=== PATIENT | male | born 1955 | race Caucasian/White ===

== ENCOUNTER 2021-12-04 14:01 | Emergency (ER) | payer MEDICARE, OTHER ==
[~2021-12-04 14:01] MED LIST: ASPIRIN325 MG PO; AZULFIDINE500 M1 PO; CENTRUM COMPLE1 EACH PO; HUMIRA40 MG/0.1 SC; HUMULIN N100 UNIT/1 SC; K-DUR20 MEQ PO; L-LYSINE500 M1 PO; LOVAZA1 GM PO; MEDROL4 M1 PO; NAPROXEN500 MG PO; NEURONTIN400 MG PO; NEURONTIN800 MG PO; NORCO 10-325 T1 EACH PO; PREDNISONE5 MG PO; PRILOSEC40 MG PO; SINGULAIR10 MG PO; TUMERIC PO; VITAMIN D3 PO; VITAMIN E400 UNI4 PO; XELJANZ XR11 MG PO
[2021-12-04] MEDS ORDERED: BACITRACIN15 GM TOP (18:42)
[2021-12-04] MEDS ORDERED: CEPHALEXIN500 MG PO (18:42)
[2021-12-04] MEDS ORDERED: NORCO 5-325 TA1 EACH PO (18:42)
== END 2021-12-04 19:27 | disposition home or self-care (01) ==
LOC: FER 14:01
DX: S81.812A Laceration without foreign body, left lower leg, initial encounter (principal); E11.9 Type 2 diabetes mellitus without complications; J44.9 Chronic obstructive pulmonary disease, unspecified; W26.8XXA Contact with other sharp object(s), not elsewhere classified, initial encounter; Y92.89 Other specified places as the place of occurrence of the external cause; Y99.0 Civilian activity done for income or pay
CPT/HCPCS: 73590